=== PATIENT | male | born 1970 | race Caucasian/White ===

== ENCOUNTER 2019-03-21 22:23 | Observation (INO) | payer OTHER ==
[~2019-03-21] VITALS: Ht 170.2 cm; Wt 77.5 kg
[2019-03-21 22:50] LABS: BASOPHILS ABSOLUTE AUTO 0.05 K/mm3 (0.00-0.23); BASOPHILS PERCENT AUTO 1 % (0-2); EOSINOPHILS ABSOLUTE AUTO 0.07 K/mm3 (0.00-0.68); EOSINOPHILS PERCENT AUTO 1 % (0-6); Hematocrit 46.9 % (37.0-53.0); Hemoglobin 16.5 g/dL (13.5-17.5); IMMATURE GRAN ABSOLUTE AUTO 0.03 K/mm3 (0.00-0.10); IMMATURE GRAN PERCENT AUTO 0 % (0-1); LYMPHOCYTES ABSOLUTE AUTO 1.06 K/mm3 (0.84-5.20); LYMPHOCYTES PERCENT AUTO 11 % (21-46); MONOCYTES PERCENT AUTO 5 % (4-13); Mean Corpuscular HGB 30.2 pg (26.0-34.0); Mean Corpuscular HGB Conc 35.2 g/dL (31.5-36.5); Mean Corpuscular Volume 86 fL (80-100); Mean Platelet Volume 8.5 fL (9.1-12.4); NEUTROPHILS PERCENT AUTO 83 % (41-73); Platelet Count 235 K/mm3 (150-400); RDW Coefficient Variation 11.8 % (11.7-14.2); RDW Standard Deviation 36.7 fL (35.1-46.3); Red Blood Cell Count 5.46 M/mm3 (4.30-5.90); White Blood Cell Count 10.01 K/mm3 (4.00-11.30)
[2019-03-21 23:09] LABS: Alanine Aminotransfer (ALT/SGP 63 U/L (12-78); Albumin, Blood 4.5 g/dL (3.4-5.0); Albumin/Globulin Ratio 1.2 (0.8-1.8); Alk Phos 69 U/L (50-136); Anion Gap 7 mmol/L (6-16); Aspartate Aminotrans (AST/SGOT 33 U/L (12-37); Bilirubin, Total 0.4 mg/dL (0.1-1.0); Blood Urea Nitrogen 18 mg/dL (8-24); Bun/Creatinine Ratio 20.7 (12.0-20.0); CO2, Blood 30 mmol/L (21-32); Calcium, Blood 9.7 mg/dL (8.5-10.1); Chloride, Blood 104 mmol/L (98-108); Creatinine, Blood 0.87 mg/dL (0.60-1.20); Globulin, Blood 3.7 g/dL (2.2-4.0); Glomerular Filtration Rate >60 (60-); Glucose, Blood 134 mg/dL (70-99); Potassium, Blood 3.5 mmol/L (3.5-5.5); Sodium, Blood 141 mmol/L (136-145); Total Protein, Blood 8.2 g/dL (6.4-8.2)
--- NOTE | 2019-03-22 05:00 | NUR ---
SHIFT SUMMARY- PT. ARRIVED FROM ER INTO ROOM VIA STRETCHER, ASSISTED INTO BED. PT. IS A&OX4, INDEPENDENT IN ROOM. DX'S OF GALLSTONES. PT. GIVEN DILAUDID IN THE ER, WITH GOOD RELIEF. PT. STATES PAIN 06/26. DENIES THE NEED FOR PAIN MEDICATION AT THIS TIME, ALSO DENIES NA. PT. NPO, PLAN FOR POSSIBLE SURGERY TODAY. CALL LIGHT WITHIN REACH AND SIDE RAILS UP X2. WILL CONT TO MONITOR.
--- NOTE | 2019-03-22 08:39 | NUR ---
CALLED OFFICE TO SEE WHEN HE WILL SEE PATIENT TODAY. THEY WILL SEND TEXT TO WHO IS LASER ENGINEER.
--- NOTE | 2019-03-22 10:50 | NUR ---
Patient is lying in bed and alert. Patient's spouse, Vickie is bedside. Patient tells me about his recent medical history, about his family, about his [place] journey and the loss of his son (a year ago). Patient shares about his concerns. I listen empathically, explore patient's belief system and provide grief support, spiritual guidance and pre-surgery prayer. Patient responds well and shows signs of reduced stress. I will continue to remain available to patient and family.
--- NOTE | 2019-03-22 12:16 | NUR ---
TO OR. IV SALINE LOCKED
--- NOTE | 2019-03-22 14:07 | NUR ---
PER OR CHARGE PATIENTS SURGERY TO BE DONE AT [facility] PATIENT TAKEN TO [facility] AFTER DR MANUEL AND DR CASTANON SAW PATIENT. RE[facility].
--- NOTE | 2019-03-22 17:41 | NUR ---
BACK FROM O.R. VSS. ALERT. DROWSEY ,BUT AWAKENS EASILY. CLEAR LIQUIDS GIVEN AND TOLERATING WELL. BANDAIDS ON ABD INTACT WITH NO OBVIOUS SIGNS OF BLEEDING.IV LR RUNNING. DENIES PAIN OR NAUSEA AT THIS TIME. REVIEW IV AND P.O. PAIN MEDS W/PATIENT AND . UNLABORED RESPIRATIONS. CONVERSES EASILY. WILL ADVANCE DIET TOLERATED. BED IN LOW POSITION. CALL LIGHT WITHIN REACH. FAMILY IN VISITING. TM
--- NOTE | 2019-03-22 22:59 | NUR ---
PATIENT RESTING IN BED. VITALS WNL. DENIES PAIN, SOB, AND N/V. PATIENT ASKED IF HE WAS ON PAIN MEDS BECAUSE NO PAIN AT THIS TIME. NO PAIN MEDS GIVEN. LR INFUSING AT 100 mL/HR. CALL LIGHT IN REACH. WILL CONTINUE TO MONITOR.
--- NOTE | 2019-03-23 04:17 | NUR ---
SHIFT SUMMARY PATIENT HAD NO ACUTE CHANGES OBSERVED. AOX X4 AND INDEPENDENT IN ROOM. PIV REMAINS INTACT. LR INFUSING AT 100 mL/HR. VSS/AFEBRILE. DENIES PAIN, SOB, AND N/V. CLEAR LIQUID DIET TO REGULAR DIET TOLERATED. REGULAR DIET SCHEDULE FOR BREAKFAST. PATIENT REPORTS NOT NEEDING PAIN MEDICATION BUT WAS INFORMED THEY WERE AVAILABLE PRN WHEN HE ASKED. COOPERATIVE WITH CARE. CALL LIGHT IN REACH. BED IN LOWEST POSITION. WILL CONTINUE TO MONITOR UNTIL DAY SHIFT NURSE ASSUME CARE.
[2019-03-23] MEDS ORDERED: DOCU100 PO (08:00)
[2019-03-23] MEDS ORDERED: HYDR1TAB94 PO (08:01)
--- NOTE | 2019-03-23 08:35 | NUR ---
0820 PT TO DISCHARGE. NURSE WENT OVER DISCHARGE INSTRUCTIONS WITH PATIENT AND INSTRUCTED TO FOLLOW UP WITH DOCTOR IN TWO WEEKS. MEDS CALLED INTO [facility]. 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
== END 2019-03-23 08:42 | disposition home or self-care (01) ==
LOC: ER 22:23 → MEDS 22:24 → ENPENDDIS 03-23 07:00 → MEDS 03-23 08:42
PROVIDERS: Emergency Medicine; ADMIT Surgery
PROC: 0FT44ZZ Resection of Gallbladder, Percutaneous Endoscopic Approach (ICD-10-PCS; principal; 2019-03-22)
DX: K80.10 Calculus of gallbladder with chronic cholecystitis without obstruction (principal)
CPT/HCPCS: 36415; 74176; 76705; 80053; 83690; 85025; 88304; 96365; 96375; 99285-25; G0378; J0171; J0694; J1100; J1170; J1885; J2250; J2405; J2543; J2704; J2710; J3010; J7030; J7120